=== PATIENT | male | born 1985 | race Hispanic/Latino ===

== ENCOUNTER 2018-04-29 07:40 | Emergency (ER) | payer OTHER, BC ==
[2018-04-29 07:40] VITALS: BMI 33.9
[2018-04-29 07:50] VITALS: RESP 18; TEMP 98.8; O2SAT 99
--- NOTE | 2018-04-29 08:14 | ED PDOC ---
Arrival/HPI - General Chief Complaint: Eye Problem Time Seen by Provider: 04/29/18 07:52 Historian: Patient - History of Present Illness Narrative History of Present Illness (Text): 04/29/18 07:55 32 year old male, with no significant past medical history, who presents to the Emergency department complaining of waking up with an irritated and swollen eye yesterday morning. Patient states he started taking Benadryl, noting he took 6 in the last 24 hours. Patient states he believes it is a mosquito bite, noting his said she killed a "gigantic" mosquito yesterday night. Patient notes he had a sore throat 2 days ago, but does not believe it is associated, while noting his children have been sick. Patient denies any known drug allergies or any allergies. Patient denies any fevers, chills, rashes, dyspnea, light sensit ivity, eye pain, or any other complaint. PMD: Dr. Tico Villanueva Time/Duration: 24 hours (Patient notes he woke up with an irritated eye yesterday morning) Symptom Onset: Sudden Symptom Course: Unchanged Activities at Onset: Light Past Medical History - Provider Review Nursing Documentation Reviewed: Yes - Infectious Disease Hx of Infectious Diseases: None - Tetanus Immunization Tetanus Immunization: Unknown - Past Medical History Past Medical History: No Previous - Cardiac Hx Hypotension: Yes - Psychiatric Hx Substance Use: No - Surgical History Hx Tonsillectomy: Yes - Anesthesia Hx Anesthesia: Yes Hx Anesthesia Reactions: No Hx Malignant Hyperthermia: No - Suicidal Assessment Feels Threatened In Home Enviroment: No Family/Social History - Physician Review Nursing Documentation Reviewed: Yes Family/Social History: No Known Family HX Smoking Status: Never Smoked Hx Alcohol Use: Yes Hx Substance Use: No Hx Substance Use Treatment: No Allergies/Home Meds Allergies/Adverse Reactions: Allergies No Known Allergies Allergy (Verified 11/08/14 13:26) Home Medications: Home Meds Medication Instructions Recorded Confirmed amLODIPine [Norvasc] 10 mg PO DAILY 04/29/18 04/29/18 Review of Systems - Physician Review All systems were reviewed & negative as marked: Yes - Review of Systems Constitutional: Normal. absent: Fevers, Night Sweats Eyes: absent: Normal, Photophobia, Eye Pain ENT: Sore Throat (patient notes he had a sore throat 2 days ago, noting his children as sick contacts). absent: Normal Respiratory: Normal Cardiovascular: Normal Skin: Normal. absent: Rash Neurological: Normal Physical Exam Vital Signs Reviewed: Yes Vital Signs Temp Pulse Resp BP Pulse Ox 04/29/18 07:46 98.8 F 88 18 160/98 H 99 Temperature: Afebrile Blood Pressure: Hypertensive Pulse: Regular Respiratory Rate: Normal Appearance: Positive for: Well-Appearing, Non-Toxic, Comfortable Pain Distress: None Mental Status: Positive for: Alert and Oriented X 3 - Systems Exam Head: Present: Atraumatic, Normocephalic Pupils: Present: PERRL, Other (no obvious foreign object, punctums noted to left eye ) Extroacular Muscles: Present: EOMI, Other ( ) Conjunctiva: Present: Normal Mouth: Present: Moist Mucous Membranes Pharnyx: Present: Uvular Deviation. No: Normal, ERYTHEMA (no erythema noted), EXUDATE (no exudates noted) Neck: Present: Normal Range of Motion Respiratory/Chest: Present: Clear to Auscultation, Good Air Exchange. No: Respiratory Distress, Accessory Muscle Use, Wheezes, Rales, Rhonchi Cardiovascular: Present: Regular Rate and Rhythm, Normal S1, S2. No: Murmurs Abdomen: No: Tenderness, Distention, Peritoneal Signs Back: Present: Normal Inspection Upper Extremity: Present: Normal Inspection. No: Cyanosis, Edema Lower Extremity: Present: Normal Inspection. No: Edema Neurological: Present: GCS=15, CN II-XII Intact, Speech Normal Skin: Present: Warm, Dry, Normal Color, Other (periorbital swelling to left eye. No tenderness to palpitation). No: Rashes Psychiatric: Present: Alert, Oriented x 3, Normal Insight, Normal Concentration Medical Decision Making ED Course and Treatment: 04/29/18 07:55 Impression: 32 year old male who presents to the Emergency department for irritated/swollen eye since waking up yesterday morning. Differential Diagnosis included but are not limited to: - Orbital Cellulitis - Preseptal cellulitis - Dacryoadenitis Plan: -- CT of orbits/facials w/o contrast -- Pepcid, 40 mg PO -- predniSONE Tab, 60 mg PO -- Reassess and disposition Prior Visits: Notes and results from previous visits were reviewed. Progress Notes: - RAD Interpretation Narrative RAD Interpretations (Text): CT of orbit reviewed by radiology, shows: Dictator : Ellis Ya MD Report Date : 04/29/2018 09:03:43 FINDINGS: RIGHT ORBIT: RIGHT BONY ORBIT: Normal. RIGHT INTRAORBITAL STRUCTURES: Globe: Normal. Extraocular muscles: Normal. Post septal space: Normal. Optic Nerve: Normal. Lacrimal Apparatus: Normal. RIGHT PRESEPTAL SOFT TISSUES: Normal. LEFT ORBIT: LEFT BONY ORBIT: Normal. LEFT INTRAORBITAL STRUCTURES: Globe: Normal. Extraocular muscles: Normal. Post septal space: Normal Optic Nerve: Normal. . Lacrimal Apparatus: Normal. LEFT PRESEPTAL SOFT TISSUES: There is mild swelling in the preseptal soft tissues consistent with superficial cellulitis. OTHER: There is opacification of the paranasal sinuses IMPRESSION: Superficial orbital cellulitis on the left. Sinusitis Radiology Orders: 04/29/18 08:11 ORBITS/ FACIALS W/O CONTRAST [CT] Stat Shoeblack: Radiologist - Medication Orders Current Medication Orders: Discontinued Medications Famotidine (Pepcid) 40 mg PO STAT STA Stop: 04/29/18 08:02 Last Admin: 04/29/18 08:11 Dose: 40 mg Prednisone (Prednisone Tab) 60 mg PO STAT ONE Stop: 04/29/18 08:02 Last Admin: 04/29/18 08:11 Dose: 60 mg - Scribe Statement The provider has reviewed the documentation as recorded by the Bennieibalec Green All medical record entries made by the Matt were at my direction and personally dictated by me. I have reviewed the chart and agree that the record accurately reflects my personal performance of the history, physical exam, medical decision making, and the department course for this patient. I have also personally directed, reviewed, and agree with the discharge instructions and disposition. Disposition/Present on Arrival - Present on Arrival Any Indicators Present on Arrival: No History of DVT/PE: No History of Uncontrolled Diabetes: No Urinary Catheter: No History of Decub. Ulcer: No History Surgical Site Infection Following: None - Disposition Have Diagnosis and Disposition been Completed?: Yes Diagnosis: Periorbital cellulitis of left eye Disposition: HOME/ ROUTINE Disposition Time: 10:42 Patient Plan: Discharge Patient Problems: Current Active Problems Problem Status Onset Periorbital cellulitis of left eye Acute Discharge Instructions (ExitCare): Orbital Cellulitis (DC), Cellulitis (ED) Prescriptions: Clindamycin [Cleocin] 300 mg PO TID 10 Days #30 cap Referrals: Hesham Francis MD [Staff Provider] - Follow up with primary Forms: [employer] ([place])
--- NOTE | 2018-04-29 09:05 | CT ---
Date of service: 04/29/2018 PROCEDURE: CT ORBITS WITHOUT CONTRAST. HISTORY: left eye swelling r/o preseptal/septal cellulitis COMPARISON: None available. TECHNIQUE: Axial CT images of the orbits were obtained. Coronal and sagittal reformats were generated. Radiation dose: Total exam DLP = 783 mGy-cm. This CT exam was performed using one or more of the following dose reduction techniques: Automated exposure control, adjustment of the mA and/or kV according to patient size, and/or use of iterative reconstruction technique. FINDINGS: RIGHT ORBIT: RIGHT BONY ORBIT: Normal. RIGHT INTRAORBITAL STRUCTURES: Globe: Normal. Extraocular muscles: Normal. Post septal space: Normal. Optic Nerve: Normal. Lacrimal Apparatus: Normal. RIGHT PRESEPTAL SOFT TISSUES: Normal. LEFT ORBIT: LEFT BONY ORBIT: Normal. LEFT INTRAORBITAL STRUCTURES: Globe: Normal. Extraocular muscles: Normal. Post septal space: Normal Optic Nerve: Normal. . Lacrimal Apparatus: Normal. LEFT PRESEPTAL SOFT TISSUES: There is mild swelling in the preseptal soft tissues consistent with superficial cellulitis. OTHER: There is opacification of the paranasal sinuses IMPRESSION: Superficial orbital cellulitis on the left. Sinusitis
[2018-04-29] MEDS ORDERED: Clindamycin 600mg/50ml D5W 600 MG/50 ML VIAL IVPB STA (09:34)
[2018-04-29 10:08] LABS: BASO # 0.02 K/mm3 (0.0-2.0); BASO % 0.4 % (0.0-3.0); EOS # 0.1 (0.0-0.7); EOS % 2.3 % (1.5-5.0); GRAN # 4.14 (1.4-6.5); GRAN % 73.7 % (50.0-68.0); HEMOGLOBIN 16.2 g/dL (14.0-18.0); LYMPH # 0.9 (1.2-3.4); LYMPH % 15.9 % (22.0-35.0); MEAN CORPUSCULAR HEMOGLOBIN 30.5 pg (25.0-35.0); MEAN CORPUSCULAR HGB CONC 36.3 g/dl (31.0-37.0); MEAN PLATELET VOLUME 9.7 fl (7.0-11.0); MONO # 0.4 (0.1-0.6); MONO % 7.7 % (1.0-6.0); RBC 5.31 10^6/uL (3.5-6.1); RED CELL DISTRIBUTION WIDTH 12.2 % (11.5-14.5); WHITE BLOOD COUNT 5.6 10^3/ul (4.5-11.0)
[2018-04-29 10:12] LABS: ALB/GLOB RATIO 1.3 (1.1-1.8); ALBUMIN 4.7 g/dL (3.0-4.8); ALT/SGPT 46 U/L (7-56); AST/SGOT 54 U/L (17-59); BLOOD UREA NITROGEN 17 mg/dL (7-21); GFR NON-AFRICAN AMERICAN > 60
[2018-04-29 10:31] VITALS: PULSE 82
[2018-04-29 11:06] VITALS: BP 147/93
== END 2018-04-29 10:54 | disposition home or self-care (01) ==
LOC: ED 07:40
DX: L03.213 Periorbital cellulitis (principal)